=== PATIENT | male | born 1955 | race Caucasian/White ===

== ENCOUNTER 2021-03-14 16:55 | Emergency (ER) | payer MEDICARE, MEDICAID ==
[~2021-03-14] VITALS: Ht 177.8 cm; Wt 66.9 kg
[2021-03-14 17:22] VITALS: BP 137/68
== END 2021-03-14 21:50 | disposition left against medical advice (07) ==
LOC: ER 16:56
DX: M54.9 Dorsalgia, unspecified (principal); Z53.21 Procedure and treatment not carried out due to patient leaving prior to being seen by health care provider

== ENCOUNTER 2021-03-15 06:48 | Emergency (ER) | payer MEDICARE, MEDICAID ==
[~2021-03-15] VITALS: Ht 177.8 cm; Wt 66.9 kg
--- NOTE | 2021-03-15 07:00 | NUR ---
Brought in by EMS for back pain. Taken to ER lobby via WC. Patient called to triage, lying on floor, refusing to get up . Security called.
--- NOTE | 2021-03-15 07:20 | NUR ---
security came and pt. got hemself up off the floor and seated himself in a wheel chair with out assistance
--- NOTE | 2021-03-15 07:23 | NUR ---
went out to check on pt. pt observed walking upright and ambulating out the door of the lobby to the parking lot without any assistance.
[2021-03-15] MEDS ORDERED: cyclobenzaprine 10mg tablet PO ONE (09:40)
[2021-03-15] MEDS ORDERED: ketorolac trometh. 30mg/ml inj. IM ONE (09:40)
== END 2021-03-15 11:02 | disposition home or self-care (01) ==
LOC: ER 06:48
DX: M54.5 Low back pain (principal); Z56.0 Unemployment, unspecified; Z59.0 Homelessness
CPT/HCPCS: 72100; 96372; 99283; J1885

== ENCOUNTER 2021-03-23 12:13 | Emergency (ER) | payer MEDICARE, MEDICAID ==
[~2021-03-23] VITALS: Ht 177.8 cm; Wt 49.0 kg
[2021-03-23 12:44] VITALS: BP 124/69
[2021-03-23] MEDS ORDERED: CYCL-1 PO (13:44)
[2021-03-23] MEDS ORDERED: ketorolac tromethamine 15mg/ml inj. IM ONE (13:45)
--- NOTE | 2021-03-23 16:32 | NUR ---
PT RETURNED STATING THAT WE DIDN'T GIVE HIM A PERSCRIPTION FOR WHAT HE NEEDED. PT WAS INFORMED THAT HE WAS GIVEN AN RX FOR FLEXORIL AND GIVEN AN INJECTION OF TORADOL PRIOR TO HIS DC AND THAT NO OTHER RX WAS GIVEN TO HIM. PT BECAME AGGITATED, THROWING HIS ARMS AROUND, SWEARING AND THEN TOSSED HIS DC PAPERS AND RX FOR FLEXERIL ON THE GROUND THEN STEPED ON THE RX AND RIPED IT WITH HIS FEET AND WALKER. PT WAS ASKED TO LEAVE AT THAT MOMENT AND PT AMBULATED OUT OF THE ER WITHOUT ASSISTANCE USING A WALKER
== END 2021-03-23 14:04 | disposition home or self-care (01) ==
LOC: ER 12:13
DX: M54.5 Low back pain (principal); M62.830 Muscle spasm of back; Z79.899 Other long term (current) drug therapy; Z56.0 Unemployment, unspecified; Z59.0 Homelessness
CPT/HCPCS: 96372; 99283; J1885